=== PATIENT | male | born 2000 | race Caucasian/White ===

== ENCOUNTER 2018-02-05 23:40 | Emergency (ER) | payer OTHER, BC ==
--- NOTE | 2018-02-06 01:31 | EDM.PDOC ---
ED HPI GENERAL MEDICAL PROBLEM - General Chief Complaint: Upper Extremity Injury/Pain Stated Complaint: PAIN LT ARM/PUNCTURE ELBOW Time Seen by Provider: 02/06/18 00:12 Source of Information: Reports: Patient History Limitations: Reports: No Limitations - History of Present Illness INITIAL COMMENTS - FREE TEXT/NARRATIVE: HISTORY AND PHYSICAL: History of present illness: 17-year-old male presenting to the emergency department with chief complaint of left elbow pain after trauma. 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 There was a small abrasion to that area and he felt immediate pain. He denies any decrease in sensation, strength, but has some limited range of motion secondary to pain. States that the pain is located in his elbow with radiation to his forearm. Patient does not remember when his last tetanus vaccination was. Denies any other trauma to his body or loss of consciousness. Review of systems: As per history of present illness and below otherwise all systems reviewed and negative. Past medical history: As per history of present illness and as reviewed below otherwise noncontributory. Surgical history: As per history of present illness and as reviewed below otherwise noncontributory. Social history: No reported history of drug or alcohol abuse. Family history: As per history of present illness and as reviewed below otherwise noncontributory. Physical exam: HEENT: Atraumatic, normocephalic, pupils reactive, negative for conjunctival pallor or scleral icterus, mucous membranes moist, throat clear, neck supple, nontender, trachea midline. Lungs: Clear to auscultation, breath sounds equal bilaterally, chest nontender. Heart: S1S2, regular, negative for clicks, rubs, or JVD. Abdomen: Soft, nondistended, nontender. Negative for masses or hepatosplenomegaly. Negative for costovertebral tenderness. Pelvis: Stable nontender. Genitourinary: Deferred. Rectal: Deferred. Extremities: Atraumatic, negative for cords or calf pain. Neurovascular unremarkable. Neuro: Awake, alert, oriented. Cranial nerves II through XII unremarkable. Cerebellum unremarkable. Motor and sensory unremarkable throughout. Exam nonfocal. Diagnostics: Left elbow x-ray, left forearm x-ray Therapeutics: Left arm sling, DTaP Impression: Contusion left elbow Plan: X-ray of left elbow and forearm revealed no acute osseous abnormalities. There was a oval lesion within the distal ulna likely representing a fibrous cortical defect. I did talk to patient and his mother about this and recommended that he follow-up in 3 months to assure stability. Patient was instructed to use ibuprofen and Tylenol for pain. He was also given a sling. He was instructed to rest the area, ice, and elevate. He was discharge in good condition with above instructions and told to follow-up with primary care provider. He was also updated on a DTaP. Definitive disposition and diagnosis as appropriate pending reevaluation and review of above. left elbow Pain Score (Numeric/FACES): 5 - Related Data Allergies Allergy/AdvReac Type Severity Reaction Status Date / Time No Known Allergies Allergy Verified 02/05/18 23:53 Home Meds: Home Meds . [No Known Home Meds] 02/05/18 [History] Past Medical History HEENT History: Reports: None - Infectious Disease History Infectious Disease History: Reports: Chicken Pox - Past Surgical History HEENT Surgical History: Reports: Tonsillectomy Social & Family History - Family History Family Medical History: Noncontributory - Tobacco Use Smoking Status *Q: Never Smoker Second Hand Smoke Exposure: No - Caffeine Use Caffeine Use: Reports: Coffee, Energy Drinks, Soda - Recreational Drug Use Recreational Drug Use: No Review of Systems - Review of Systems Review Of Systems: ROS reveals no pertinent complaints other than HPI. ED EXAM, GENERAL - Physical Exam Exam: See Below Course - Vital Signs Last Recorded V/S: Last Vital Signs Temp 98 F 02/05/18 23:50 Pulse 78 02/05/18 23:50 Resp 18 02/05/18 23:50 BP 136/85 02/05/18 23:50 Pulse Ox 98 02/05/18 23:50 - Orders/Labs/Meds Orders: Active Orders 24 hr Category Date Time Status Elbow Min 3V Lt [CR] Stat Exams 02/06/18 00:20 Taken Forearm 2V Lt [CR] Stat Exams 02/06/18 00:20 Taken Departure - Departure Time of Disposition: 01:31 Disposition: Home, Self-Care 01 Condition: Good Clinical Impression: Contusion of left elbow, initial encounter - Discharge Information Referrals: PCP,None [Primary Care Provider] - Additional Instructions: My general discharge The following information is given to patients seen in the emergency department who are being discharged to home. This information is to outline your options for follow-up care. We provide all patients seen in our emergency department with a follow-up referral. The need for follow-up, as well as the timing and circumstances, are variable depending upon the specifics of your emergency department visit. If you don't have a primary care physician on staff, we will provide you with a referral. We always advise you to contact your personal physician following an emergency department visit to inform them of the circumstance of the visit and for follow-up with them and/or the need for any referrals to a consulting specialist. The emergency department will also refer you to a specialist when appropriate. This referral assures that you have the opportunity for follow-up care with a specialist. All of these measure are taken in an effort to provide you with optimal care, which includes your follow-up. Under all circumstances we always encourage you to contact your private physician who remains a resource for coordinating your care. When calling for follow-up care, please make the office aware that this follow-up is from your recent emergency room visit. If for any reason you are refused follow-up, please contact the [facility] Emergency Department at and asked to speak to the emergency department charge nurse. [facility] [address] [place] [address] [id number] [id number] May use ibuprofen and Tylenol for pain and inflammation. Rest the area and use ice for inflammation. Follow-up with primary care provider. Return to emergency department if any new or worsening symptoms. - My Orders Last 24 Hours: My Active Orders 02/06/18 00:20 Elbow Min 3V Lt [CR] Stat Forearm 2V Lt [CR] Stat - Assessment/Plan Last 24 Hours: My Active Orders 02/06/18 00:20 Elbow Min 3V Lt [CR] Stat Forearm 2V Lt [CR] Stat
[2018-02-06] MEDS ORDERED: Diphtheria,Pertussis(Acell),Tetanus Vaccine 0.5 ML Syringe IM ONE (01:39)
--- NOTE | 2018-02-07 09:51 | CR ---
EXAM DATE: 02/05/18 PATIENT'S AGE: 17 Patient: NEO MOODY Facility: [place], [place] Site . Site : 2000 Study: XRay Extremity Left [id number] 1:03:23 AM Ordering Physician: Vinnie Franco Final Report: Indication: Arm pain after injury Technique: Two views left forearm Comparison: None Findings: Bones: Alignment is normal. No fractures. Within the distal 1/3 of the ulna, there is a 1.2 cm oval lesion with a sclerotic peripheral rim. There is no periosteal reaction. Joint spaces: Unremarkable. Soft tissues: Unremarkable. Impression: 1. No acute injury. 2. Oval lesion within the distal ulna likely represents a fibrous cortical defect. Recommend follow-up radiographs in 3 months to assure stability. Dictated by Chante De La Rosa MD @ Feb 06 2018 1:03AM (Electronic Signature) Report Signed by Proxy. DASHAWN
--- NOTE | 2018-02-07 09:52 | CR ---
EXAM DATE: 02/05/18 PATIENT'S AGE: 17 Patient: NEO MOODY Facility: [place], [place] Site . Site : 2000 Study: XRay Extremity Left [id number] 1:03:51 AM Ordering Physician: Vinnie Franco Final Report: Indication: Arm pain after injury Technique: Four views left elbow Comparison: None Findings: Bones: Alignment is normal. No fractures. There is a small bone island within the distal humerus. Joint spaces: Unremarkable. Soft tissues: Unremarkable. Impression: Negative. Dictated by Chante De La Rosa MD @ Feb 06 2018 1:08AM (Electronic Signature) Report Signed by Proxy. DASHAWN
== END 2018-02-06 02:10 | disposition home or self-care (01) ==
LOC: MW.ED 23:40
DX: S50.02XA Contusion of left elbow, initial encounter (principal); Z23 Encounter for immunization; W22.8XXA Striking against or struck by other objects, initial encounter; Y99.0 Civilian activity done for income or pay
CPT/HCPCS: 73080-26-LT; 73080-LT; 73090-26-LT; 73090-LT; 90471; 90715; 99283-25

== ENCOUNTER 2019-12-10 18:55 | Emergency (ER) | payer BC ==
[2019-12-10] MEDS ORDERED: Sodium Chloride 0.9% 1,000 ML IV ONE (19:03)
[2019-12-10] MEDS ORDERED: fentaNYL 50 MCG/ML SDV IVPUSH ONE (19:03)
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
[2019-12-10] MEDS ORDERED: Ketorolac 30 MG/ML SDV IVPUSH ONE (19:26)
[2019-12-10] MEDS ORDERED: Bacitracin Oint 1 GM U/D Packet TOP ONE (19:29)
[2019-12-10] MEDS ORDERED: Cephalexin 500 MG Cap PO ONE (19:31)
--- NOTE | 2019-12-10 19:37 | CR ---
Right tibia and fibula: AP and lateral views of the right tibia and fibula were obtained. Comparison: No previous study. No fracture or other bony abnormality is seen. Mild soft tissue swelling is present. Impression: 1. Mild soft tissue swelling. 2. No bony abnormality is appreciated on right tibia and fibula exam. Diagnostic code #2 This report was dictated in MDT
--- NOTE | 2019-12-10 19:37 | CR ---
Right forearm: 2 views of the right forearm were obtained. Comparison: No prior forearm study is available. Mild soft tissue swelling is seen. No discrete fracture or other bony abnormality is appreciated. Impression: 1. Soft tissue swelling. 2. No acute bony abnormality is identified on right forearm study. Diagnostic code #2 This report was dictated in MDT
--- NOTE | 2019-12-10 19:37 | CR ---
Right knee: AP, lateral and sunrise patellar views of the right knee were obtained. Comparison: No previous study. Medial and lateral joint compartments are maintained in height. Patellofemoral joint is within normal limits. No joint effusion is seen. No acute fracture, dislocation or other bony abnormality is identified. Impression: 1. No abnormality is appreciated on three-view right knee exam. Diagnostic code #1 This report was dictated in MDT
== END 2019-12-10 20:07 | disposition home or self-care (01) ==
LOC: MW.ED 18:55
DX: S80.11XA Contusion of right lower leg, initial encounter (principal); S50.811A Abrasion of right forearm, initial encounter; V86.56XA Driver of dirt bike or motor/cross bike injured in nontraffic accident, initial encounter; Y92.410 Unspecified street and highway as the place of occurrence of the external cause
CPT/HCPCS: 73090; 73562; 73590; 96374; 99283; A9270; J1885; J7030

== ENCOUNTER 2020-04-23 01:48 | Emergency (ER) | payer BC ==
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
--- NOTE | 2020-04-23 02:55 | CR ---
Indication: Injury Technique: Two views of the left wrist Comparison: 02/06/2018 Findings: Bones: A small ovoid ossific density at the dorsum of the proximal carpus suggestive of a fracture fragment. No dislocation. An ovoid mildly sclerotic focus again seen in the ulnar diaphysis, nonspecific. Negative ulnar variance. Joint spaces: Unremarkable. Soft tissues: Dorsal carpal soft tissue swelling. Impression: A fracture fragment at the dorsum of the proximal carpus, which could represent a triquetral fracture, although dorsal scaphoid or lunate fracture is not excluded. Correlate clinically and consider additional views. Dictated by Chet Callahan MD @ 04/23/2020 2:52:59 AM Dictated by: Chet Callahan MD @ 04/23/2020 02:53:04 (Electronically Signed)
== END 2020-04-23 04:02 ==
LOC: MW.ED 01:48
DX: S62.115A Nondisplaced fracture of triquetrum [cuneiform] bone, left wrist, initial encounter for closed fracture (principal); V19.9XXA Pedal cyclist (driver) (passenger) injured in unspecified traffic accident, initial encounter
CPT/HCPCS: 29125; 73100-26-LT; 73100-LT; 99282; 99283-25

== ENCOUNTER 2023-01-06 22:56 | Emergency (ER) | payer BC, OTHER ==
[2023-01-06] MEDS ORDERED: Aspirin 81 MG Tab.Chew PO ONE (23:12)
[2023-01-06] MEDS ORDERED: Famotidine 20 MG/2 ML SDV IVPUSH ONE (23:12)
[2023-01-06] MEDS ORDERED: Metoprolol Tartrate 5 MG/5 ML SDV IVPUSH ONE (23:16)
[2023-01-06] MEDS ORDERED: Aluminum Hydroxide/Magnesium Hydroxide/Simethicone XS Susp 30 ML Cup PO ONE (23:16)
[2023-01-06 23:28] LABS: BASOPHILS PERCENT AUTO 0.5 % (0.0-1.5); EOSINOPHILS ABSOLUTE AUTO 0.2 K/uL (0.0-0.7); EOSINOPHILS PERCENT AUTO 2.2 % (0.0-7.0); HEMOGLOBIN 15.8 g/dL (13.0-17.0); LYMPHOCYTES ABSOLUTE AUTO 2.8 K/uL (0.6-2.4); LYMPHOCYTES PERCENT AUTO 33.7 % (16.0-40.0); MEAN CORPUSCULAR HEMOGLOBIN 33.7 pg (27.0-32.0); MEAN CORPUSCULAR HGB CONC 36.7 g/dL (31.0-37.0); MEAN CORPUSCULAR VOLUME 91.7 fL (80.0-98.0); MONOCYTES ABSOLUTE AUTO 0.9 K/uL (0.0-0.8); MONOCYTES PERCENT AUTO 11.2 % (0.0-15.0); NEUTROPHILS ABSOLUTE AUTO 4.4 K/uL (1.4-5.7); NEUTROPHILS PERCENT AUTO 52.4 % (48.0-80.0); NRBC ABSOLUTE 0 K/uL; PLATELET COUNT,PLT 185 K/uL (150-400); RED BLOOD CELL COUNT 4.69 M/uL (4.50-5.90); WHITE BLOOD CELL COUNT,WBC 8.32 K/uL (4.0-11.0)
[2023-01-06 23:31] LABS: PTT,PARTIAL THROMBOPLSTIN TIME 26.8 SEC (23.9-30.7)
[2023-01-06 23:36] LABS: A/G RATIO 1.2 (0.9-1.6); ALANINE AMINOTRANSFERASE,ALT 106 IU/L (14-63); ALBUMIN 4.2 g/dL (3.4-5.0); ALKALINE PHOSPHATASE 74 U/L (46-116); ASPARTATE AMNIOTRANSFERASE,AST 34 IU/L (15-37); BILIRUBIN TOTAL 0.4 mg/dL (0.2-1.0); BLOOD UREA NITROGEN,BUN 15 mg/dL (7.0-18.0); CARBON DIOXIDE,CO2 27.8 mmol/L (21.0-32.0); CHLORIDE,CL 101 mmol/L (98-107); CREATININE 1.1 mg/dL (0.8-1.3); EST CRCL DRUG DOSING (CG) 113.66 mL/min; GLUCOSE RANDOM 89 mg/dL (74-106); MAGNESIUM 2.1 mg/dL (1.8-2.4); POTASSIUM,K 3.9 mmol/L (3.5-5.1); PROTEIN TOTAL,TP 7.6 g/dL (6.4-8.2); SODIUM,NA 140 mmol/L (136-148)
[2023-01-06 23:38] LABS: ESTIMATED GFR 96 mL/min (>60); ETHANOL BLOOD MEDICAL < 3.0 mg/dL
[2023-01-07 00:16] LABS: APPEARANCE,URINE CLEAR; BILIRUBIN,URINE NEGATIVE (NEGATIVE); COLOR,URINE YELLOW; GLUCOSE,URINE NEGATIVE (NEGATIVE); KETONES,URINE NEGATIVE (NEGATIVE); LEUKOCYTE ESTERASE,URINE NEGATIVE (NEGATIVE); NITRITE,URINE NEGATIVE (NEGATIVE); OCCULT BLOOD,URINE NEGATIVE (NEGATIVE); PROTEIN,URINE NEGATIVE (NEGATIVE); UROBILINOGEN,URINE 0.2 EU/dL (<2.0)
[2023-01-07] MEDS ORDERED: Meclizine 25 MG Tab PO ONE (00:23)
[2023-01-07 00:26] LABS: AMPHETAMINES SCREEN, URINE NEGATIVE (CUTOFF=500); BARBITURATE SCREEN,URINE NEGATIVE (CUTOFF=200); BENZODIAZEPINES SCREEN,URINE NEGATIVE (CUTOFF=150); BUPRENORPHINE SCREEN,URINE NEGATIVE (CUTOFF=10); METHADONE SCREEN, URINE NEGATIVE (CUTOFF=200); METHAMPHETAMINES SCREEN, URINE NEGATIVE (CUTOFF=500); OXYCODONE SCREEN,URINE NEGATIVE (CUT0FF=100); PCP SCREEN,URINE NEGATIVE (CUTOFF=25); PROPOXYPHENE SCREEN,URINE NEGATIVE (CUTOFF=300); THC SCREEN,URINE 20 NG/ML NEGATIVE (CUTOFF=50)
== END 2023-01-07 01:51 | disposition home or self-care (01) ==
LOC: MW.ED 22:56
DX: I10 Essential (primary) hypertension (principal); Z79.899 Other long term (current) drug therapy
CPT/HCPCS: 36415; 71045; 80053; 80305; 80307; 81003; 83735; 84484; 85025; 85610; 85730; 93005; 96374; 96375; 99285; A9270; J3490

== ENCOUNTER 2023-04-07 16:14 | Emergency (ER) | payer BC ==
[2023-04-07] MEDS ORDERED: Ondansetron 4 MG/2 ML SDV IVPUSH ONE (16:23)
[2023-04-07] MEDS ORDERED: fentaNYL 50 MCG/ML SDV ONE (16:23)
[2023-04-07] MEDS ORDERED: fentaNYL 50 MCG/ML SDV IVPUSH ONE (16:23)
[2023-04-07] MEDS ORDERED: Ondansetron 4 MG/2 ML SDV ONE (16:23)
[2023-04-07] MEDS ORDERED: Sodium Chloride 0.9% 10 ML Syringe FLUSH PRN (16:24)
[2023-04-07] MEDS ORDERED: Sodium Chloride 0.9% 2.5 ML Syringe FLUSH PRN (16:24)
[2023-04-07] MEDS ORDERED: Sodium Chloride 0.9% 1,000 ML IV SCH (16:30)
[2023-04-07 17:02] LABS: BASOPHILS PERCENT AUTO 0.5 % (0.0-1.5); EOSINOPHILS ABSOLUTE AUTO 0.1 K/uL (0.0-0.7); EOSINOPHILS PERCENT AUTO 0.9 % (0.0-7.0); HEMATOCRIT 45.5 % (38.0-50.0); HEMOGLOBIN 16.4 g/dL (13.0-17.0); LYMPHOCYTES ABSOLUTE AUTO 2.2 K/uL (0.6-2.4); LYMPHOCYTES PERCENT AUTO 26.4 % (16.0-40.0); MEAN CORPUSCULAR VOLUME 91.5 fL (80.0-98.0); MONOCYTES ABSOLUTE AUTO 0.5 K/uL (0.0-0.8); MONOCYTES PERCENT AUTO 5.9 % (0.0-15.0); NEUTROPHILS ABSOLUTE AUTO 5.4 K/uL (1.4-5.7); NEUTROPHILS PERCENT AUTO 66.3 % (48.0-80.0); NRBC ABSOLUTE 0 K/uL; PLATELET COUNT,PLT 195 K/uL (150-400); RED BLOOD CELL COUNT 4.97 M/uL (4.50-5.90); WHITE BLOOD CELL COUNT,WBC 8.13 K/uL (4.0-11.0)
[2023-04-07 17:03] LABS: PTT,PARTIAL THROMBOPLSTIN TIME 26.7 SEC (23.9-30.7)
[2023-04-07 17:24] LABS: A/G RATIO 1.2 (0.9-1.6); ALANINE AMINOTRANSFERASE,ALT 108 IU/L (14-63); ALBUMIN 4.3 g/dL (3.4-5.0); ALKALINE PHOSPHATASE 66 U/L (46-116); ASPARTATE AMNIOTRANSFERASE,AST 40 IU/L (15-37); BILIRUBIN TOTAL 0.5 mg/dL (0.2-1.0); BLOOD UREA NITROGEN,BUN 12 mg/dL (7.0-18.0); CALCIUM 9.1 mg/dL (8.5-10.1); CARBON DIOXIDE,CO2 25.1 mmol/L (21.0-32.0); CHLORIDE,CL 100 mmol/L (98-107); CREATININE 1.1 mg/dL (0.8-1.3); EST CRCL DRUG DOSING (CG) 113.66 mL/min; GLUCOSE RANDOM 157 mg/dL (74-106); POTASSIUM,K 3.7 mmol/L (3.5-5.1); PROTEIN TOTAL,TP 7.9 g/dL (6.4-8.2); SODIUM,NA 136 mmol/L (136-148)
[2023-04-07 17:28] LABS: ESTIMATED GFR 96 mL/min (>60)
[2023-04-07 17:37] LABS: APPEARANCE,URINE CLEAR; BILIRUBIN,URINE NEGATIVE (NEGATIVE); GLUCOSE,URINE NEGATIVE (NEGATIVE); KETONES,URINE NEGATIVE (NEGATIVE); LEUKOCYTE ESTERASE,URINE NEGATIVE (NEGATIVE); NITRITE,URINE NEGATIVE (NEGATIVE); OCCULT BLOOD,URINE NEGATIVE (NEGATIVE); PH,URINE 5.5 (5.0-8.0); PROTEIN,URINE NEGATIVE (NEGATIVE); UROBILINOGEN,URINE 0.2 EU/dL (<2.0)
[2023-04-07] MEDS ORDERED: Iopamidol 755 Mg/ML 100 ML Bottle IVPUSH ONE (17:44)
[2023-04-07 17:52] LABS: COLOR,URINE STRAW
== END 2023-04-07 20:14 | disposition home or self-care (01) ==
LOC: MW.ED 16:14
DX: R07.9 Chest pain, unspecified (principal); R20.2 Paresthesia of skin; R53.1 Weakness
CPT/HCPCS: 36415; 70450; 71275; 74174; 80053; 81003; 84484; 85025; 85610; 85730; 86850; 86900; 86901; 93005; 96361; 96374; 99285; J2405; J3490; J7030; Q9967; 93010; 99284